=== PATIENT | male | born 1990 | race Caucasian/White ===

== ENCOUNTER 2018-03-15 14:41 | Emergency (ER) | payer OTHER ==
[2018-03-15] MEDS ORDERED: ASPIRIN 81 MG CHEWABLE TAB PO ONE (15:37)
[2018-03-15] MEDS ORDERED: HYOSCYAMINE SULFATE 0.125 MG TAB PO ONE (15:37)
[2018-03-15] MEDS ORDERED: MAG HYDROX/AL HYDROX/SIMETH 30 ML UDCUP PO ONE (15:37)
[2018-03-15] MEDS ORDERED: LIDOCAINE 2% VISCOUS 15 ML UDCUP PO ONE (15:37)
--- NOTE | 2018-03-15 15:41 | EDPHY ---
H & P Time Seen by Provider: 03/15/18 15:13 HPI/ROS: CHIEF COMPLAINT: Chest pain HISTORY OF PRESENT ILLNESS: The patient is a 27-year-old male who presents emergency department with intermittent chest pain for the past 1 month. He is having initial episodes that he describes as 1/10. Today at 2:00 p.m. He had 5/ 10 substernal chest pain. It does not radiate. No shortness of breath. No diaphoresis. No nausea vomiting. Patient states he has taken Tums during episodes with some relief. He has had no leg pain or swelling. 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 He is in and out of his truck frequently. REVIEW OF SYSTEMS: 10 systems were reveiwed and are negative with the exception of the elements mentioned in the history of present illness. Past Medical/Surgical History: Negative the Social history: The patient does not smoke Smoking Status: Never smoked Physical Exam: Vitals noted GENERAL: Well-appearing, in no acute distress, alert. HEENT: Eyes normal to inspection, normal pharynx, no signs of dehydration. NECK: Normal, supple. RESPIRATORY: Clear to auscultation bilaterally, no rales, rhonchi or wheezing. Chest wall: No chest wall tenderness CVS: Regular rate and rhythm, no rubs, murmurs, or gallops. ABDOMEN: Soft, nontender, nondistended, no organomegaly. BACK: Normal to inspection, no CVA tenderness. SKIN: Normal color, no rash, warm, dry. No pallor. EXTREMITIES: No pedal edema, no calf tenderness, no Homans sign or cords, no joint swelling. NEURO/PSYCH: Alert and oriented, normal mood and affect, normal motor sensory exam. Constitutional: Initial Vital Signs Temperature (C) 36.5 C 03/15/18 14:52 Heart Rate 68 03/15/18 14:52 Respiratory Rate 16 03/15/18 14:52 Blood Pressure 138/77 H 03/15/18 14:52 O2 Sat (%) 97 03/15/18 14:52 O2 Delivery Mode Room Air Allergies/Adverse Reactions: No Known Allergies Allergy (Unverified 03/15/18 14:52) Home Medications: Medication Instructions Recorded Famotidine [Pepcid 20 MG (*)] 20 mg PO BID #14 tab 03/15/18 Medical Decision Making - Diagnostics Imaging Results: Imaging Impressions Chest X-Ray 03/15/18 17:45 Impression: Normal. ED Course/Re-evaluation: In the emergency department I discussed possible etiologies with the patient. I answered all his questions. An IV was placed. Laboratory studies and EKG were obtained. The patient was give aspirin 324 mg orally for his chest pain. He was given a GI cocktail for his chest pain. EKG shows normal sinus rhythm, normal rate, normal axis, normal intervals. There are no ST or T-wave abnormalities. EKG is normal as interpreted by me. Patient's CBC and chemistry were unremarkable. Troponin is negative. LFTs and D-dimer negative. On recheck the patient was feeling better. He had no chest pain . Chest x-ray: Please refer the dictated report. No acute disease noted. I discussed all results with the patient. I gave him warnings prior to leaving. He was given follow-up with [facility]. He will take Pepcid for the next 7 days. Differential Diagnosis: My differential includes but is not limited to ACS, acute MA, pulmonary embolus , dissection, aneurysm, hiatal hernia, pancreatitis, cholangitis, cholecystitis , pleurisy - Data Points Laboratory Results: Laboratory Results 03/15/18 14:45 03/15/18 14:45 03/15/18 03/15/18 03/15/18 15:08 15:00 14:45 WBC RBC Hgb Hct MCV MCH MCHC RDW Plt Count MPV Neut % (Auto) Lymph % (Auto) [place] % (Auto) Eos % (Auto) Baso % (Auto) Nucleat RBC Rel Count Absolute Neuts (auto) Absolute Lymphs (auto) Absolute Monos (auto) Absolute Eos (auto) Absolute Basos (auto) Absolute Nucleated RBC Immature Gran % Immature Gran # D-Dimer < 0.27 ug/mLFEU ug/mLFEU (0.00-0.50) Sodium 140 mEq/L mEq/L (135-145) Potassium 3.7 mEq/L mEq/L (3.5-5.2) Chloride 105 mEq/L mEq/L (97-110) Carbon Dioxide 22 mEq/l mEq/l (22-31) Anion Gap 13 mEq/L mEq/L (6-14) BUN 16 mg/dL mg/dL (7-23) Creatinine 1.0 mg/dL mg/dL (0.7-1.3) Estimated GFR > 60 Glucose 105 mg/dL H mg/dL (70-100) Calcium 9.8 mg/dL mg/dL (8.5-10.4) Total Bilirubin 0.6 mg/dL mg/dL (0.1-1.4) Conjugated Bilirubin 0.2 mg/dL mg/dL (0.0-0.5) Unconjugated Bilirubin 0.4 mg/dL mg/dL (0.0-1.1) AST 45 IU/L IU/L (17-59) ALT 103 IU/L H IU/L (21-72) Alkaline Phosphatase 54 IU/L IU/L (38-126) POC Troponin I 0.00 ng/mL ng/mL (0.00-0.08) Total Protein 7.7 g/dL g/dL (6.3-8.2) Albumin 4.7 g/dL g/dL (3.5-5.0) Lipase 61 IU/L IU/L (23-300) 03/15/18 14:45 WBC 7.78 10^3/uL 10^3/uL (3.80-9.50) RBC 5.17 10^6/uL 10^6/uL (4.40-6.38) Hgb 15.2 g/dL g/dL (13.7-17.5) Hct 43.7 % % (40.0-51.0) MCV 84.5 fL fL (81.5-99.8) MCH 29.4 pg pg (27.9-34.1) MCHC 34.8 g/dL g/dL (32.4-36.7) RDW 12.9 % % (11.5-15.2) Plt Count 265 10^3/uL 10^3/uL (150-400) MPV 9.9 fL fL (8.7-11.7) Neut % (Auto) 50.7 % % (39.3-74.2) Lymph % (Auto) 38.3 % % (15.0-45.0) [place] % (Auto) 8.5 % % (4.5-13.0) Eos % (Auto) 1.5 % % (0.6-7.6) Baso % (Auto) 0.6 % % (0.3-1.7) Nucleat RBC Rel Count 0.0 % % (0.0-0.2) Absolute Neuts (auto) 3.94 10^3/uL 10^3/uL (1.70-6.50) Absolute Lymphs (auto) 2.98 10^3/uL 10^3/uL (1.00-3.00) Absolute Monos (auto) 0.66 10^3/uL 10^3/uL (0.30-0.80) Absolute Eos (auto) 0.12 10^3/uL 10^3/uL (0.03-0.40) Absolute Basos (auto) 0.05 10^3/uL 10^3/uL (0.02-0.10) Absolute Nucleated RBC 0.00 10^3/uL 10^3/uL (0-0.01) Immature Gran % 0.4 % % (0.0-1.1) Immature Gran # 0.03 10^3/uL 10^3/uL (0.00-0.10) D-Dimer Sodium Potassium Chloride Carbon Dioxide Anion Gap BUN Creatinine Estimated GFR Glucose Calcium Total Bilirubin Conjugated Bilirubin Unconjugated Bilirubin AST ALT Alkaline Phosphatase POC Troponin I Total Protein Albumin Lipase Medications Given: Discontinued Medications Al Hydroxide/Mg Hydroxide (Maalox Susp) 30 ml PO ONCE ONE Stop: 03/15/18 15:38 Last Admin: 03/15/18 15:58 Dose: 30 ml Aspirin (Aspirin) 324 mg PO EDNOW ONE Stop: 03/15/18 15:38 Last Admin: 03/15/18 15:57 Dose: 324 mg Hyoscyamine Sulfate (Levsin, Hyomax-Sl) 0.25 mg PO ONCE ONE Stop: 03/15/18 15:38 Last Admin: 03/15/18 15:57 Dose: 0.25 mg Lidocaine (Lidocaine 2% Viscous) 15 ml PO ONCE ONE Stop: 03/15/18 15:38 Last Admin: 03/15/18 15:58 Dose: 15 ml Point of Care Test Results: Chemistry 03/15/18 15:08 POC Troponin I 0.00 ng/mL ng/mL (0.00-0.08) Departure - Departure Disposition: Home, Routine, Self-Care Clinical Impression: Chest pain Qualifiers: Chest pain type: unspecified Qualified Code(s): R07.9 - Chest pain, unspecified Condition: Good Instructions: Chest Pain (ED) Additional Instructions: Return with increasing chest pain, shortness of breath, vomiting, weakness or any other concerns. Take Pepcid for the next 7 days. You been given follow-up information with [facility]. Call to make an appointment. Referrals: [facility] [Provider Group] - As per Instructions Prescriptions: Famotidine [Pepcid 20 MG (*)] 20 mg PO BID #14 tab
[2018-03-15 15:44] LABS: PLATELET COUNT 265 10^3/uL (150-400)
[2018-03-15 18:49] VITALS: BP 122/82
--- NOTE | 2018-03-16 08:54 | CPEKG ---
Test Reason : OPEN Blood Pressure : / mmHG Vent. Rate : 067 BPM Atrial Rate : 068 BPM P-R Int : 158 ms QRS Dur : 101 ms QT Int : 390 ms P-R-T Axes : 045 052 042 degrees QTc Int : 412 ms Sinus rhythm Confirmed by Mahad Malik ([id number]) on 03/16/2018 8:54:41 AM Referred By: Confirmed By:Mahad Malik
== END 2018-03-15 18:49 | disposition home or self-care (01) ==
DX: R07.9 Chest pain, unspecified (principal)
CPT/HCPCS: 84484-ER